=== PATIENT | male | born 1965 | race Two or more races ===

== ENCOUNTER 2021-10-18 08:48 | Inpatient (IN) | payer MEDICAID, OTHER ==
[~2021-10-18] VITALS: Ht 177.8 cm; Wt 129.0 kg
[2021-10-18 09:59] LABS: Basophils # (auto) 0.1 10 ^3/uL (0-0.2); Basophils % (auto) 0.9 % (0.0-2.0); Eosinophils # (auto) 0.1 10 ^3/uL (0-0.8); Eosinophils % (auto) 1.6 % (0.0-7.0); Hematocrit 42.7 % (41.0-53.0); Hemoglobin 14.1 g/dL (13.5-17.5); Lymphocytes # (auto) 1.4 10 ^3/uL (0.4-5.4); Lymphocytes % (auto) 25.3 % (10.0-50.0); Mean Corpuscular Hemoglobin 30.2 pg (28.0-32.0); Mean Corpuscular Volume 91.5 fL (80.0-100.0); Monocytes # (auto) 0.5 10 ^3/uL (0-1.3); Monocytes % (auto) 8.3 % (0.0-12.0); Neutrophils # (auto) 3.6 10 ^3/uL (1.6-8.6); Neutrophils % (auto) 63.9 % (37.0-80.0); Nucleated Red Blood Cells % 0.1 %; Red Blood Cells 4.66 10^6/uL (4.5-5.90); Red Cell Distribution Width 14.7 % (11.8-14.3); White Blood Cell 5.7 10^3/uL (4.4-10.8)
[2021-10-18 10:24] LABS: INR 0.98 (0.9-1.15); Partial Thromboplastin Time 26.5 sec (24.6-33.4)
[2021-10-18 10:49] LABS: Calcium 8.2 mg/dL (8.5-10.1)
[2021-10-18 10:55] LABS: Albumin 3.6 g/dL (3.4-5.0); BUN/Creatinine Ratio 18.9; Bilirubin, Total 0.7 mg/dL (0.2-1.0); Magnesium 2.4 mg/dL (1.6-2.6); Total Protein 6.6 g/dL (6.4-8.2)
[2021-10-18] MEDS ORDERED: ASPirin 81 mg TAB PO ONE (13:15)
[2021-10-18] MEDS ORDERED: NITROGLYCERIN 0.4 MG SL TAB SL ONE (13:15)
[2021-10-18] MEDS ORDERED: MORPHINE SULFATE INJ 2 MG/ml SYRG IV PRN (15:15)
[2021-10-18] MEDS ORDERED: NITROGLYCERIN 0.4 MG SL TAB SL PRN (15:15)
[2021-10-18] MEDS ORDERED: THIAMINE 100mg/ml INJ (200mg/2ml VIAL) IV ONE (15:30)
[2021-10-18] MEDS ORDERED: PANTOPRAZOLE 40 MG/10 ML VIAL INJ IV ONE (15:30)
[2021-10-18 16:21] LABS: Blood Alcohol < 3.0 mg/dL (0-5); Cholesterol 175 mg/dL (< 200)
[2021-10-18 16:23] LABS: HDL Cholesterol 67 mg/dL (40-59); LDL Cholesterol 108 mg/dL (< 100); Triglycerides 144 mg/dL (< 150)
[2021-10-18] MEDS: SODIUM CHLORIDE 0.9% 1,000 ML IV SCH ×2 (18:28→23:30)
[2021-10-18] MEDS: ATORVASTATIN 20 MG TAB PO SCH (22:07)
[2021-10-19 06:13] LABS: Basophils # (auto) 0 10 ^3/uL (0-0.2); Basophils % (auto) 0.7 % (0.0-2.0); Eosinophils # (auto) 0.1 10 ^3/uL (0-0.8); Eosinophils % (auto) 1.7 % (0.0-7.0); Hematocrit 41.3 % (41.0-53.0); Lymphocytes # (auto) 1.7 10 ^3/uL (0.4-5.4); Lymphocytes % (auto) 30.2 % (10.0-50.0); Mean Corpuscular Hemoglobin 30.8 pg (28.0-32.0); Mean Corpuscular Hgb Conc. 33.8 g/dL (32.0-36.0); Mean Corpuscular Volume 91.2 fL (80.0-100.0); Monocytes # (auto) 0.6 10 ^3/uL (0-1.3); Monocytes % (auto) 9.7 % (0.0-12.0); Neutrophils # (auto) 3.3 10 ^3/uL (1.6-8.6); Neutrophils % (auto) 57.7 % (37.0-80.0); Nucleated Red Blood Cells % 0.1 %; Red Blood Cells 4.53 10^6/uL (4.5-5.90); Red Cell Distribution Width 14.4 % (11.8-14.3); White Blood Cell 5.7 10^3/uL (4.4-10.8)
[2021-10-19 06:23] LABS: Albumin 3.3 g/dL (3.4-5.0); Calcium 8.4 mg/dL (8.5-10.1); Potassium 3.8 mmol/L (3.5-5.1)
[2021-10-19 06:28] LABS: BUN/Creatinine Ratio 17.5; Bilirubin, Total 0.9 mg/dL (0.2-1.0); Total Protein 6.4 g/dL (6.4-8.2)
[2021-10-19] MEDS: SODIUM CHLORIDE 0.9% 1,000 ML IV SCH ×2 (07:42→18:34)
[2021-10-19] MEDS: ASPirin 81 mg TAB PO SCH (09:42)
[2021-10-19] MEDS: ENOXAPARIN SOD 40 MG/0.4 ML SYRINGE SC SCH (09:42)
[2021-10-19] MEDS: PANTOPRAZOLE 40 MG/10 ML VIAL INJ IV SCH (09:43)
[2021-10-19 13:00] VITALS: BP 133/69
[2021-10-19 17:00] VITALS: BP 141/77
[2021-10-19 21:17] LABS: Urine Bacteria FEW /hpf (None Seen); Urine Blood Negative /uL (Negative); Urine Mucus FEW (None Seen); Urine Specific Gravity 1.012 (1.001-1.035); Urine WBC 1 /hpf (0 - 3)
[2021-10-19] MEDS: ATORVASTATIN 20 MG TAB PO SCH (21:31)
[2021-10-19 21:33] LABS: Alcohol, Urine < 3.0 mg/dL (0-10); Amphetamine Screen, Urine NEGATIVE (NEGATIVE); Barbiturate Scree,Urine NEGATIVE (NEGATIVE); Benzodiazephine Screen, Urine NEGATIVE (NEGATIVE); Cannabinoid Screen, Urine NEGATIVE (NEGATIVE); Cocaine Screen, Urine NEGATIVE (NEGATIVE); Opiate Scree,Urine NEGATIVE (NEGATIVE); Phencyclidine Screen, Urine NEGATIVE (NEGATIVE)
[2021-10-19 22:00] VITALS: BP 110/57
[2021-10-20] VITALS (7 sets, daily range): BP systolic 108–135; BP diastolic 59–70
[2021-10-20] MEDS: SODIUM CHLORIDE 0.9% 1,000 ML IV SCH ×4 (07:30→23:30)
[2021-10-20] MEDS: ENOXAPARIN SOD 40 MG/0.4 ML SYRINGE SC SCH (09:36)
[2021-10-20] MEDS: ASPirin 81 mg TAB PO SCH (09:36)
[2021-10-20] MEDS: PANTOPRAZOLE 40 MG/10 ML VIAL INJ IV SCH (09:37)
[2021-10-20] MEDS: ATORVASTATIN 20 MG TAB PO SCH (21:47)
[2021-10-21 05:00] VITALS: BP 107/58
[2021-10-21] MEDS: SODIUM CHLORIDE 0.9% 1,000 ML IV SCH (07:30)
[2021-10-21 09:00] VITALS: BP 134/78
[2021-10-21] MEDS: PANTOPRAZOLE 40 MG/10 ML VIAL INJ IV SCH (09:42)
[2021-10-21] MEDS: ASPirin 81 mg TAB PO SCH (09:42)
[2021-10-21] MEDS: ENOXAPARIN SOD 40 MG/0.4 ML SYRINGE SC SCH (09:42)
[2021-10-21 13:10] VITALS: BP 128/62
[2021-10-21 13:23] VITALS: BP 128/62
== END 2021-10-21 14:06 | disposition home or self-care (01) | DRG 313 ==
LOC: ER 08:48 → TELE 15:14 → TELE-WESTW 10-19 09:09 → TELE-EAST 10-20 18:42
PROVIDERS: ADMIT Registered Nurse; ATTEND Internal Medicine
DX: R07.89 Other chest pain (principal); Z68.41 Body mass index [BMI] 40.0-44.9, adult; E66.01 Morbid (severe) obesity due to excess calories; F10.10 Alcohol abuse, uncomplicated; R74.01 Elevation of levels of liver transaminase levels
CPT/HCPCS: 36415; 71045; 80053; 80061; 80307; 80320; 81001; 83036; 83735; 84484; 85025; 85610; 85730; 93005; 93306; 93886; 96361; 96374; 96375; C9113; G0378